=== PATIENT | male | born 2000 | race Caucasian/White ===

== ENCOUNTER 2020-01-25 15:30 | Emergency (ER) | payer BC ==
[~2020-01-25] VITALS: Ht 177.8 cm; Wt 65.3 kg
[2020-01-25 15:30] VITALS: BP_SYST 125
--- NOTE | 2020-01-25 15:50 | NUR ---
Dr nava in to assess
--- NOTE | 2020-01-25 15:53 | NUR ---
Patient to [facility] for evaluation.Report given to CHANDRAKANT Cuevas.
--- NOTE | 2020-01-25 16:02 | NUR ---
CALM, ALERT, RESP UNLABORED, PT C/O CHEST TIGHTNESS, DENIES PAIN.DENIES INJURY. BIB MOTHER FROM HOME, NO DISTRESS, C/O ANXIETY
[2020-01-25] MEDS ORDERED: LORazepam 1 MG TABLET PO ONE (16:15)
[2020-01-25] MEDS ORDERED: IBUPROFEN 600 MG TABLET PO ONE (16:15)
[2020-01-25 16:42] VITALS: BP_SYST 125
--- NOTE | 2020-01-25 16:43 | NUR ---
Patient given written and verbal discharge instructions and verbalizes understanding. ER MD discussed with patient the results and treatment provided. Patient in stable condition. ID arm band removed. Rx of Ativan and Naproxen given. Patient educated on pain management and to follow up with PMD. Pain Scale 0/10. Opportunity for questions provided and answered. Medication side effect fact sheet provided.
== END 2020-01-25 16:42 | disposition home or self-care (01) ==
LOC: SED 15:30
DX: F41.9 Anxiety disorder, unspecified (principal); R07.89 Other chest pain
CPT/HCPCS: 71045; 93005; 99283